=== PATIENT | male | born 1995 ===

== ENCOUNTER 2024-03-18 12:45 | Emergency (ER) | payer OTHER ==
[2024-03-18] MEDS ORDERED: Sodium Chloride 0.9% 10 ML Syringe FLUSH PRN (13:06)
[2024-03-18] MEDS: Sodium Chloride 0.9% 1,000 ML IV ONE ×2 (13:12→15:23)
[2024-03-18 13:14] LABS: BASOPHILS ABSOLUTE AUTO 0.05 K/uL (0.00-0.20); BASOPHILS PERCENT AUTO 0.7 % (0.0-2.0); EOSINOPHILS ABSOLUTE AUTO 0.23 K/uL (0.00-0.50); EOSINOPHILS PERCENT AUTO 3.2 % (0.0-5.0); HEMOGLOBIN 14.7 g/dL (13.1-16.8); LYMPHOCYTES ABSOLUTE AUTO 2.66 K/uL (0.50-3.50); LYMPHOCYTES PERCENT AUTO 37.6 % (10.0-50.0); MEAN CORPUSCULAR HEMOGLOBIN 31.1 pg (28.2-33.3); MEAN CORPUSCULAR HGB CONC 34.2 g/dL (31.7-36.0); MEAN CORPUSCULAR VOLUME 91.1 fL (84.0-98.0); MONOCYTES ABSOLUTE AUTO 0.44 K/uL (0.00-1.00); MONOCYTES PERCENT AUTO 6.2 % (2.0-14.0); NEUTROPHILS PERCENT AUTO 52.3 % (45.0-80.0); PLATELET COUNT,PLT 273 K/uL (150-350); RED BLOOD CELL COUNT 4.72 M/uL (4.33-5.41); RED CELL DISTRIBUTION WIDTH 12.8 % (11.2-14.1); WHITE BLOOD CELL COUNT,WBC 7.1 K/uL (4.0-10.2)
[2024-03-18 13:36] LABS: ALBUMIN 4.3 g/dL (3.4-5.0); ANION GAP 9.8 meq/L (7-15); BILIRUBIN TOTAL 0.8 mg/dL (0.2-1.0); CALCIUM 9.8 mg/dL (8.5-10.1); CARBON DIOXIDE,CO2 28.2 mmol/L (21.0-32.0); CREATININE 1.29 mg/dL (0.51-1.17); EST CRCL DRUG DOSING (CG) 89.18 mL/min; MAGNESIUM 2.4 mg/dL (1.8-2.4); POTASSIUM,K 4.3 mmol/L (3.5-5.1); PROTEIN TOTAL,TP 7.6 g/dL (6.4-8.2)
[2024-03-18 13:39] LABS: LACTIC ACID 1.1 mmol/L (0.4-2.0)
[2024-03-18] MEDS: Iopamidol 612 MG/ML 100 ML Bottle IVPUSH STA (14:40)
[2024-03-18 15:33] LABS: APPEARANCE,URINE CLOUDY; BILIRUBIN,URINE NEGATIVE (NEGATIVE); COLOR,URINE YELLOW; GLUCOSE,URINE NEGATIVE (NEGATIVE); KETONES,URINE TRACE mg/dL (NEGATIVE); LEUKOCYTE ESTERASE,URINE NEGATIVE (NEGATIVE); NITRITE,URINE NEGATIVE (NEGATIVE); OCCULT BLOOD,URINE MODERATE (NEGATIVE); PROTEIN,URINE NEGATIVE (NEGATIVE); UROBILINOGEN,URINE 0.2 E.U./dL (0.2-1.0)
[2024-03-18 15:44] LABS: AMPHETAMINES SCREEN, URINE NEGATIVE (NEGATIVE); BARBITURATE SCREEN,URINE NEGATIVE (NEGATIVE); BENZODIAZEPINES SCREEN,URINE NEGATIVE (NEGATIVE); COCAINE METABOLITES,URINE NEGATIVE (NEGATIVE); EDDP,URINE SCREEN NEGATIVE (NEGATIVE); METHAMPHETAMINES SCREEN, URINE NEGATIVE (NEGATIVE); TCA SCREEN,URINE NEGATIVE (NEGATIVE); THC SCREEN,URINE 50 NG/ML POSITIVE (NEGATIVE)
[2024-03-18 15:47] LABS: BUPRENORPHINE SCREEN,URINE NEGATIVE (NEGATIVE); OXYCODONE SCREEN,URINE NEGATIVE (NEGATIVE)
[2024-03-18 15:54] LABS: BACTERIA,URINE NOT SEEN /HPF (NONE TO FEW); EPITHELIAL CELLS,URINE NOT SEEN /LPF; MUCUS,URINE RARE /LPF (NEGATIVE); RBC,URINE 40-50 /HPF; WBC,URINE NOT SEEN /HPF
[2024-03-18] MEDS: Ketorolac 15 MG/ML SDV IVPUSH ONE (17:00)
[2024-03-18] MEDS: Tamsulosin 0.4 MG Cap.ER PO ONE (17:06)
[2024-03-18] MEDS: Take Home: Tamsulosin HCl 0.4 MG, 6 Cap Pack PO ONE (17:08)
[2024-03-18] MEDS: Take Home: Ketorolac 10 MG Tab, 4 Tab Pack PO ONE (17:08)
[2024-03-21 13:52] LABS: C.TRACHOMATIS BY TMA Negative (Negative); N.GONORRHOEAE BY TMA Negative (Negative); SOURCE URINE
== END 2024-03-18 17:20 | disposition home or self-care (01) ==
LOC: LL.ED 12:45
DX: N20.0 Calculus of kidney (principal); E86.0 Dehydration; Z79.899 Other long term (current) drug therapy
CPT/HCPCS: 36415; 74022; 74176; 80053; 80305-QW; 81001; 83605; 83735; 85025; 87426-QW; 87491; 87591; 96361; 96365; 99284; 99284-25; A9270-GY; J0696; J3490; J7030; Q9967